=== PATIENT | male | born 2000 | race Caucasian/White ===

== ENCOUNTER 2023-11-06 14:30 | Emergency (ER) | payer MEDICAID ==
[~2023-11-06] VITALS: Ht 185.4 cm; Wt 72.0 kg
[2023-11-06 16:06] LABS: CLARITY URINE CLEAR (CLEAR); COLOR URINE YELLOW (YELLOW); GLUCOSE URINE NEGATIVE (NEGATIVE); KETONES URINE NEGATIVE (NEGATIVE); LEUKOCYTE ESTERASE URINE NEGATIVE (NEGATIVE); NITRITE URINE NEGATIVE (NEGATIVE); OCCULT BLOOD URINE NEGATIVE (NEGATIVE); PROTEIN URINE NEGATIVE (NEGATIVE); SPECIFIC GRAVITY URINE 1.017 (1.005-1.030)
[2023-11-06 16:20] LABS: *AMPHETAMINES SCREEN URINE NEGATIVE (NEGATIVE)
[2023-11-06 16:21] LABS: CHLORIDE 105 mEq/L (98-107); POTASSIUM 3.5 mEq/L (3.5-5.1); SODIUM 141 mEq/L (136-145)
[2023-11-06 16:21] LABS: *BARBITURATES SCREEN URINE NEGATIVE (NEGATIVE); *BENZODIAZEPINES SCREEN URINE PRESUMPTIVE POSITIVE (NEGATIVE); *COCAINE SCREEN URINE NEGATIVE (NEGATIVE); CANNABINOID URINE SCREEN PRESUMPTIVE POSITIVE (NEGATIVE); ECSTASY MDMA SCREEN URINE NEGATIVE (NEGATIVE); METHADONE URINE SCREEN NEGATIVE (NEGATIVE); OPIATES URINE SCREEN PRESUMPTIVE POSITIVE (NEGATIVE); PHENCYCLIDINE URINE SCREEN NEGATIVE (NEGATIVE)
[2023-11-06 16:22] LABS: CALCIUM 9.8 mg/dL (8.7-10.4); CARBON DIOXIDE 31 mEq/L (21-32)
[2023-11-06 16:27] LABS: BASOPHILS % 0.4 % (0.0-2.0); CREATININE 0.6 mg/dL (0.6-1.3); EOSINOPHILS % 1.5 % (0.0-5.0); GLUCOSE 92 mg/dL (70-105); HEMATOCRIT. 35.2 % (42.0-52.0); HEMOGLOBIN. 11.8 g/dL (14.0-18.0); LYMPHOCYTES % 25.7 % (20.0-50.0); MEAN CORPUSCULAR HGB CONC 33.6 g/dL (31.0-37.0); MEAN CORPUSCULAR VOLUME 89.3 fL (80.0-94.0); MEAN PLATELET VOLUME 8.6 fl (7.4-10.4); MONOCYTES % 11.1 % (2.0-8.0); NEUTROPHILS % 61.3 % (40.0-76.0); PLATELET 374 x1000/uL (130-400); RED BLOOD CELL COUNT 3.95 mill/uL (4.7-6.1); RED CELL DISTRIBUTION WIDTH 14.2 % (11.6-14.6); UREA NITROGEN BLOOD 11 mg/dL (9-23); WHITE BLOOD COUNT 7.2 x1000/uL (4.5-11.0)
[2023-11-06 16:29] LABS: ACETAMINOPHEN 2 ug/mL (10-30)
[2023-11-06 16:37] LABS: ETHANOL BLOOD < 10 mg/dL (<10)
[2023-11-06] MEDS: DIPHENHYDRAMINE 50MG/ML VIAL IM PRN (16:55)
[2023-11-06] MEDS: HALOPERIDOL LACTATE 5MG/ML VIAL IM ONE (16:55)
[2023-11-06] MEDS: LORAZEPAM 2MG/ML INJ IM ONE (16:55)
[2023-11-06] MEDS: IBUPROFEN 600MG TABLET PO ONE (19:26)
[2023-11-06] MEDS: HYDROCODONE/ACETAMINOPHEN 5/325MG TABLET PO ONE (19:27)
[2023-11-06] MEDS ORDERED: ZIPRASIDONE MESYLATE 20MG/VIAL IM ONE (20:00)
[2023-11-07] MEDS: ZIPRASIDONE MESYLATE 20MG/VIAL IM NR (05:37)
[2023-11-07] MEDS: IBUPROFEN 800MG TABLET PO ONE (08:03)
[2023-11-07] MEDS: ACETAMINOPHEN 325MG TABLET PO ONE (14:45)
[2023-11-07 15:22] VITALS: O2SAT 99
[2023-11-07] MEDS: MIDAZOLAM HCL 2 MG/2 ML VIAL IM ONE (15:22)
[2023-11-07] MEDS: OXYCODONE HCL/ACETAMINOPHEN 5/325MG TABLET PO ONE (20:21)
[2023-11-08] MEDS: KETOROLAC 30MG/ML VIAL IM STA (03:50)
[2023-11-08] MEDS ORDERED: OLANZAPINE 10MG TABLET PO SCH (09:00)
[2023-11-08] MEDS: TRAMADOL 50MG TABLET PO ONE (12:45)
[2023-11-08] MEDS: IBUPROFEN 600MG TABLET PO ONE (16:45)
[2023-11-08] MEDS: OLANZAPINE 5MG TABLET PO SCH (21:00)
[2023-11-09] MEDS: OXYCODONE HCL/ACETAMINOPHEN 5/325MG TABLET PO ONE
[2023-11-09 16:10] VITALS: BP 125/72; PULSE 80; RESP 16; TEMP 36.83628; O2SAT 99
== END 2023-11-09 16:10 | disposition home or self-care (01) ==
LOC: ER 14:30
DX: T65.91XA Toxic effect of unspecified substance, accidental (unintentional), initial encounter (principal); Z98.890 Other specified postprocedural states; Z20.822 Contact with and (suspected) exposure to COVID-19; Y92.9 Unspecified place or not applicable
CPT/HCPCS: 80305; 80048; 81003; 80307; 80329; 80320; 85025; 36415; 96372 ×3; 99285; 87426; J1200 ×2; J1630; J2060; Z7610 ×2; J2250; J3486; J1885; G0480